=== PATIENT | female | born 1935 | race Caucasian/White ===

== ENCOUNTER 2017-05-29 01:00 | Day surgery (SDC) | payer MEDICARE ==
[~2017-05-29] VITALS: Ht 152.4 cm; Wt 67.6 kg
[~2017-05-29 01:00] MED LIST: ASC500 PO; ASCO-182 PO; ASCO100T15 PO; ASPE325 PO; ASPI-757 PO; ASPI325T22 PO; ATOR10TA24 PO; AZEL205.2 NS; CA C1TAB6 PO; CALC-797 PO; CALC-965 PO; CALC600T63 PO; CHOL10005 PO; CHOL200035 PO; CHOL200074 PO; CYAN500T38 PO; DILT120C79 PO; DILT180C86 PO; DOC100 PO; FLAX100038 PO; GLUC-234 PO; GLUC1TAB13 PO; HCTZ25 PO; HYDR-3250 GT; KRIL500C2 PO; LACT1CAP6 PO; LACT1TAB2 PO; LEVO75TA68 PO; LEVO88TA43 PO; LEVO88TA45 PO; LEVOXYL; LORA10CA3 PO; LOSA50TA67 PO; LOSA50TA72 PO; LUTE20CA11 PO; LUTE20TA PO; MAGN250T34 PO; MAGN500C10 PO; METH1TAB17 GT; MILK175C PO; MILK175T2 PO; MIRA50TA PO; MON10 PO; MONT10TA PO; OLO2ODPT OD; OMEP40CA48 PO; ONDA4TAB PO; POTA10TA PO; SIMV-42 PO; SPIR25TA78 PO; UBID200C21 PO; UBID400C6 PO; VITA-131 PO; [UNRECOGNIZED DRUG - OTHER] EXT
[2017-05-29 06:33] VITALS: BP 154/81
[2017-05-29] MEDS ORDERED: NORMOSOL R SOLN(*) 1000 ML BAG 1,000 ML IV PRN (07:00)
[2017-05-29] MEDS ORDERED: MIDAZOLAM 2 MG/2 ML VIAL IVP PRN (07:00)
[2017-05-29] MEDS ORDERED: LIDOCAINE/SOD BICARB 8.4% SYR ID ONE (07:00)
[2017-05-29] MEDS ORDERED: PROPOFOL EMUL(*) 10MG/ML 20 ML 40 ML ONE (07:01)
[2017-05-29 08:27] VITALS: BP 81/39
--- NOTE | 2017-05-29 08:32 | Short(Outpt) Discharge Summary ---
Discharge Summary Reason for Hosp/Final Diag: (1) Colon cancer screening Status: Chronic Hospital Course & Plan: Colonoscopy completed without problems. Departure Discharge to: Home, Self Care Discharge Instructions Home Meds Reported Medications Cholecalciferol (Vitamin D3) (VITAMIN D3) 1,000 Unit Tablet, 1000 UNIT PO BID, TAB 05/06/17 Calcium Carbonate (CALCIUM) 600 Mg Tablet, 600 MG PO BID 05/06/17 Aspirin (ECOTRIN) 325 Mg Tablet.dr, 325 MG PO QID 05/06/17 Montelukast Sodium (SINGULAIR) 10 Mg Tablet, 1 TAB PO QDAY, TAB 05/06/17 Losartan Potassium (LOSARTAN POTASSIUM) 50 Mg Tablet, 50 MG PO QDAY 05/06/17 Ubidecarenone (CO Q-10) 200 Mg Capsule, 200 MG PO QDAY, CAPSULE 05/06/17 Mirabegron (MYRBETRIQ) 50 Mg Tab.er.24h, 50 MG PO QDAY 04/30/17 Levothyroxine Sodium (LEVOTHYROXINE SODIUM) 88 Mcg Tablet, 88 MCG PO QDAY 08/24/15 Vitamin B Complex (VITAMIN B COMPLEX) 1 Each Tablet, 1 EACH PO QDAY 08/24/15 Ascorbic Acid (VITAMIN C) 500 Mg Tablet, 500 MG PO DAILY, TAB 08/24/15 Lactobacillus Combination No.4 (PROBIOTIC) 1 Each Capsule, 1 EACH PO QDAY, CAPSULE 08/01/15 Glucosamine Hcl/Chondr Galo A Na (OSTEO BI-FLEX CAPLET) 1 Each Tablet, 1 EACH PO BID 08/01/15 Flaxseed (FLAXSEED OIL) 1,000 Mg Capsule, 1000 MG PO QDAY, CAPSULE 08/01/15 Loratadine (CLARITIN) 10 Mg Capsule, 10 MG PO QDAY, CAPSULE 08/01/15 Azelastine Hcl (ASTEPRO) 205.5 Mcg/0.137 Ml [place].pump, 205.5 MCG NS PRN 08/01/15 Spironolactone (SPIRONOLACTONE) 25 Mg Tablet, 25 MG PO QDAY, TAB 07/22/15 Olopatadine (PATADAY) 0.05 Ml Soln, 0.05 ML OD PRN 07/22/15 Magnesium Oxide (MAGNESIUM) 500 Mg Capsule, 500 MG PO QDAY, CAPSULE 07/22/15 Atorvastatin Calcium (LIPITOR) 10 Mg Tablet, 10 MG PO QHS, TAB 07/22/15 Diltiazem Hcl (DILTIAZEM ER) 120 Mg Cap.er.deg, 120 MG PO QDAY 07/22/15 Lutein (Lutein) 20 Mg Capsule, 20 MG PO DAILY 08/01/11 Diet: Regular Activity: As Tolerated Special Instructions: Your colonoscopy was completed without any problems and your prep was excellent (Good Job!!). I didn't find any polyps, cancers, inflammation or any other abnormalities. You do not have to have any further colonoscopies for screening. If you need further help with your bowel movements or incontinence, I am happy to see you back in my office to address this if the Kegel exercises and fiber aren't providing adequate control. You can call my office at [phone] to schedule an appointment if desired. TANISHA BANG MD May 29, 2017 08:32
[2017-05-29 08:45] VITALS: BP 88/40
[2017-05-29 09:00] VITALS: BP 91/43
[2017-05-29 09:11] VITALS: BP 106/59
[2017-05-29 09:12] VITALS: BP 113/65
== END 2017-05-29 09:25 | disposition home or self-care (01) ==
LOC: OR 01:00
PROVIDERS: ATTEND Surgery
DX: Z12.11 Encounter for screening for malignant neoplasm of colon (principal)
CPT/HCPCS: 00812; G0121; J2704

== ENCOUNTER → 2017-07-04 | Outpatient (CLI) | payer MEDICARE ==
--- NOTE | 2017-07-04 15:52 | RADIOLOGY IMAGING REPORT ---
FACILITY: [facility] PATIENT NAME: KEYANA HUBBARD : [id number] MR: [id number] V: [id number] EXAM DATE: ORDERING PHYSICIAN: SENAIT KNOX TECHNOLOGIST: Lynn Schmidt PROCEDURE:BILATERAL DIGITAL SCREENING MAMMOGRAM WITH CAD ASSISTED INTERPRETATION & 3D TOMOSYNTHESIS COMPARISON:Prior mammograms 06/07/16, 12/07/15, 11/18/15, 11/05/14, 11/03/13, 10/17/12 INDICATIONS:SCREENING FINDINGS: Moderate amount of mildly heterogeneous fibroglandular tissue is seen throughout the breasts. The parenchymal pattern has remained stable allowing for difference in mammographic technique & patient positioning. There is no evidence of malignant appearing mass, malignant appearing calcifications or other secondary sign of malignancy in either breast. DIAGNOSTIC CATEGORY 1--NEGATIVE. RECOMMENDATIONS: ROUTINE MAMMOGRAM AND CLINICAL EVALUATION. IMPRESSION: BIRADS 1: Negative No significant abnormality is seen Dictated by: Jeannette Delaney M.D. on 07/04/2017 at 10:03 Transcribed by: ANTONIO on 07/04/2017 at 10:10 Approved by: Jeannette Delaney M.D. on 07/04/2017 at 15:51 [facility]
== END ==
LOC: MAMO 00:38
PROVIDERS: ATTEND Nurse Practitioner Family
DX: Z12.31 Encounter for screening mammogram for malignant neoplasm of breast (principal)
CPT/HCPCS: 77063; 77067

== ENCOUNTER 2017-07-09 07:20 | Outpatient (RCR) | payer MEDICARE ==
[2017-07-09] MEDS ORDERED: NS 0.9% 150 ML BAG 150 ML ONE (14:51)
[2017-07-09] MEDS ORDERED: IOPAMIDOL 76% 150 ML INFUS BTL 150 ML ONE (14:51)
--- NOTE | 2017-07-09 17:00 | RADIOLOGY IMAGING REPORT ---
FACILITY: [facility] PATIENT NAME: Janette Lees : 1935 MR: [id number] V: [id number] EXAM DATE: ORDERING PHYSICIAN: MAIDA SUERO TECHNOLOGIST: Location: [facility] Patient: Janette Lees : 1935 Visit/Account:[id number] Date of Sevice: 07/09/2017 ABDOMEN/PELVIS W/WO CONTRAST Provided history: Frequency, gross hematuria, dysuria, UTIs. Additional pertinent history: none TECHNIQUE: Spiral scan was obtained from the lower chest through the symphysis with intravenous cont rast Contrast dose: 125 mL Isovue 370 intravenously. Source images were reformatted in the coronal and sagittal planes. Additional series performed today: CT urogram protocol was performed. The patient received prelimina ry hydration. A non-intravenous contrast enhanced spiral scan was obtained of the kidneys, ureters an d bladder in the supine position. This was followed by split bolus of IV contrast with initial 75 mL followed by 50 mL at 5 minutes. Postcontrast scanning was performed at 8 minutes post injection in th e supine position. One of the following dose optimization techniques was utilized in the performance of this exam: Autom ated exposure control; adjustment of the mA and/or kV according to the patient's size; or use of an i terative reconstruction technique. Specific details can be referenced in the facility's radiology CT exam operational policy. COMPARISON STUDIES: Previous CT of 07/22/15 is off-line and not available. The report is available. FINDINGS: Lower chest: Small benign fat-containing Bochdalek hernia posterior right base. Liver/biliary: Negative Pancreas: Negative Spleen: Negative Adrenal glands: Negative Kidneys / ureters / bladder / genitourinary / retroperitoneum: There is no renal stone disease or hyd ronephrosis. A single irregular heavily calcified stone is noted dependently in the bladder lumen me asuring 12 x 13 mm. There are scattered benign cortical cysts in both kidneys. No suspect solid appearing lesions. The collecting structures have a normal appearance. Ureters are normal. Bladder wall smooth. Bowel / peritoneum / mesenteries: Negative Vessels: negative Lymph nodes: There are borderline prominent retroperitoneal lymph nodes. One of the largest is loca jordan in the preaortic space just below the left renal vein measuring 6 x 13 mm. Others are subcentime ter in size. No upper abdominal or pelvic adenopathy. Body wall: negative Bones: negative IMPRESSION: 1. Single irregular densely calcified stone in the bladder. 2. Benign-appearing cysts both kidneys. 3. Borderline prominent retroperitoneal lymph node. Previous study not available at this time. I w ill arrange for the prior study to be restored to the PACS system. An addendum will follow. Report Dictated By: Ray Wheatley MD at 07/09/2017 4:40 PM Report E-Signed By: Ray Wheatley MD at 07/09/2017 4:56 PM WSN:[id number]
== END 2017-07-09 18:00 | disposition home or self-care (01) ==
LOC: CT 07:20
PROVIDERS: ATTEND Urology
DX: N39.0 Urinary tract infection, site not specified (principal); R35.0 Frequency of micturition; R31.0 Gross hematuria; R30.0 Dysuria; N20.0 Calculus of kidney; N28.1 Cyst of kidney, acquired
CPT/HCPCS: 36415; 74178; 81001; 82565; 87088; Q9967

== ENCOUNTER 2017-07-18 01:21 | Day surgery (SDC) | payer MEDICARE ==
--- NOTE | 2017-07-16 14:47 | EKG ---
FACILITY: PATIENT NAME: KEYANA HUBBARD : [id number] MR: [id number] V: [id number] EXAM DATE: ORDERING PHYSICIAN: MARIA TERESA LIRA TECHNOLOGIST: JEFFRY Fajardo Reason : PREOP-BLADDER Blood Pressure : / mmHG Vent. Rate : 068 BPM Atrial Rate : 068 BPM P-R Int : 122 ms QRS Dur : 082 ms QT Int : 382 ms P-R-T Axes : 040 015 039 degrees QTc Int : 406 ms Normal sinus rhythm Septal infarct , age undetermined No ST-T abnormalities No previous ECGs available Confirmed by MANAV SHI ([id number]) on 07/16/2017 10:15:22 PM Referred By: PIO Confirmed By:MANAV SHI
[2017-07-16 15:07] LABS: INR 0.96
--- NOTE | 2017-07-17 16:33 | HISTORY AND PHYSICAL ---
DATE OF ADMISSION: July 18, 2017 CHIEF COMPLAINT Bladder stone. HISTORY OF PRESENT ILLNESS The patient is an 82-year-old white female with a history of bladder stones in 2011 who recently presented to the Urology Clinic with urinary urgency and frequency. He was found to have microscopic hematuria. A urine culture was performed which showed no growth. A CT urogram was performed which showed an approximately 1.5 cm, irregular bladder stone in the base of the bladder. She had no kidney stones, masses, or hydronephrosis. Of note, she had a CT scan in June 2015 which also showed a bladder stone measuring approximately 1.3 cm in size at that time. The patient now is being brought to the operating room for planned anesthetic cystoscopy with laser fragmentation of stone. PAST MEDICAL HISTORY: 1. Hypertension. 2. Hypercholesterolemia. 3. Kidney stones. 4. Osteoporosis. 5. Hypothyroidism. 6. Heart murmur. 7. Mixed urinary incontinence with pelvic prolapse. 8. History of UTIs. 9. COPD. 10. Asthma. PAST SURGICAL HISTORY 1. Cholecystectomy. 2. Bladder neck suspension. 3. Hysterectomy. 4. Tonsillectomy. 5. Colonoscopy. 6. Breast biopsy times two. 7. Cystoscopy with laser fragmentation of bladder stone in 2011. ALLERGIES CODEINE. CURRENT MEDICINES 1. Diltiazem. 2. Lipitor. 3. Losartan. 4. Synthroid. 5. Omeprazole. 6. Spironolactone. 7. Aspirin. 8. Claritin. 9. Multivitamins. 10. Singulair. 11. Astepro. 12. Probiotics. 13. Myrbetriq. FAMILY HISTORY Noncontributory. REVIEW OF SYSTEMS The patient denies productive cough, fever, chills, nausea, vomiting, flank pain , chest pains, bleeding disorder, chronic headaches, or liver disease. PHYSICAL EXAMINATION GENERAL: The patient is a well-developed, elderly, white female in no acute distress. HEENT: Normocephalic, atraumatic. CHEST: Clear to auscultation bilaterally. CARDIOVASCULAR: Regular rate and rhythm. ABDOMEN: Soft, nontender. No masses are palpated. GENITOURINARY: Exam is deferred to the OR. EXTREMITIES: Without clubbing, cyanosis, or edema. NEUROLOGIC: Nonfocal. IMPRESSION An 82-year-old white female with recurrent 1.5 cm, irregular surfaced bladder stone. PLAN We will perform anesthetic cystoscopy and laser fragmentation of stone with removal of fragments. VINNIE
[2017-07-18] VITALS (8 sets, daily range): BP systolic 119–148; BP diastolic 57–73
[~2017-07-18] VITALS: Ht 149.9 cm; Wt 69.4 kg
[2017-07-18 06:03] LABS: PLATELET COUNT, AUTOMATED 170 K/uL (150-450)
[2017-07-18] MEDS ORDERED: NORMOSOL R SOLN(*) 1000 ML BAG 1,000 ML IV PRN (06:45)
[2017-07-18] MEDS ORDERED: MIDAZOLAM 2 MG/2 ML VIAL IVP PRN (06:45)
[2017-07-18] MEDS ORDERED: ceFAZolin(*) 1 GM VIAL 1 GM in NS(*) 0.9% 100 ML ADDVANT BAG 100 ML IVPB ONE (06:45)
[2017-07-18] MEDS ORDERED: FAMOTIDINE 20 MG TAB PO ONE (06:45)
[2017-07-18] MEDS ORDERED: LIDOCAINE/SOD BICARB 8.4% SYR ID ONE (06:45)
[2017-07-18] MEDS ORDERED: BELLADONNA ALK/OPIUM 60MG SUPP PR ONE (08:29)
[2017-07-18] MEDS: NS 0.9% 3000 ML IRRIGATION BAG IR ONE ×2 (08:37→08:38)
[2017-07-18] MEDS ORDERED: OXYBUTYNIN CHL XL 5 MG TABCR PO ONE (09:04)
[2017-07-18] MEDS ORDERED: HYDR-4309 PO (09:09)
[2017-07-18] MEDS ORDERED: PHEN200T32 PO (09:09)
[2017-07-18] MEDS ORDERED: SULF-198 PO (09:10)
[2017-07-18] MEDS ORDERED: DOCU-416 PO (09:10)
[2017-07-18] MEDS ORDERED: APAP/HYDROCODONE 325/5 TAB ONE (09:45)
--- NOTE | 2017-07-18 14:52 | OPERATIVE REPORT 1 ---
EVENT DATE: July 18, 2017 SURGEON: José Barraza MD ANESTHESIOLOGIST: Bennett Brown MD ANESTHESIA: General anesthetic. PREOPERATIVE DIAGNOSIS A 1.5 cm, irregular surfaced bladder stone. POSTOPERATIVE DIAGNOSIS A 1.5 cm, irregular surfaced bladder stone. PROCEDURES PERFORMED 1. Anesthetic cystoscopy. 2. Holmium laser fragmentation of 1.5 cm bladder stone with irrigation of dust and fragments in bladder. ESTIMATED BLOOD LOSS Minimal. INTRAVENOUS FLUIDS Crystalloids. PATHOLOGY Stone fragments sent for permanent chemical analysis. DRAINS A 22-[place] three-way Matthews catheter with irrigation port plugged. COMPLICATIONS None. CONDITION The patient was taken to the recovery room awake and in stable condition. STATEMENT OF MEDICAL NECESSITY The patient is an 82-year-old white female who presents to the Urology Clinic with irritating voiding symptoms and hematuria. CT scan revealed a 1.5 cm, irregularly surfaced bladder stone. She had no kidney stones or other anomalies except for some mild pelvic prolapse. Of note, she had had a prior stone approximately five years ago which was treated endoscopically. She is now being brought to the operating room for planned anesthetic cystoscopy with laser fragmentation of bladder stone. DESCRIPTION OF OPERATION PERFORMED The patient was brought to the operating room. After general anesthetic was obtained, she was placed in the dorsal lithotomy position and prepped and draped in the usual sterile manner. Anesthetic cystoscopy was performed with the 21-[place] rigid Brock sheath and 30- and 70-degree lenses. Upon entering her bladder, immediately noted was a dark, spheroid-appearing, irregularly surfaced bladder stone which appeared more like a sea urchin in appearance and was measuring approximately 1.5 cm. There were some bullous changes at the base of the bladder, what appeared to be a chronic irritation from the stone. There were no other abnormalities of the bladder noted. She had a midline cystocele. At this point, the continuous flow sheath was placed in the bladder using the 12-degree lens. The 550 laser fiber was introduced into the working channel of the resectoscope sheath. Continuous flow with normal saline was established. The HyPHo 35 holmium laser was used to perform laser fragmentation of the stone. Stone settings were used at long fragmentation for a hard stone using the 550 size fiber. Under direct vision with the aid of the camera, laser dusting of the stone was performed in sweeping motion side-to- side. The stone was fairly hard, but dusting at these settings appeared to be adequate in treatment. After approximately 15 minutes of stone dusting, the stone was reduced to mainly dust with a few remaining smaller fragments which had chipped off the edges during dusting procedure. The laser settings were then turned to short fragmentation, and some of these larger fragments ranging from 3 to 8 mm were engaged and broke down into smaller parts. After fragmentation was complete, the [employer] bladder evacuator was used to remove all the dust and small fragments. Final cystoscopic exam revealed only two to three smaller, 1 to 3 mm fragments which were individually grasped with the grasping forceps. There appeared to be no bladder injury or bleeding at the conclusion of the case. The scope was removed. A 22-[place] three-way Matthews catheter was placed and the irrigation port plugged. She was placed to gravity drainage with clear return of urine. A B and O suppository was given per rectum at the conclusion of the case. The stone fragments were collected and to be sent for permanent analysis. PLAN The plan will be to allow the patient to be discharged home today with her Matthews catheter to drainage. We will see her in the Urology Clinic tomorrow morning to remove her catheter. She is also being sent home on [place], Pyridium , Bactrim, and Colace. VINNIE
== END 2017-07-18 09:38 | disposition home or self-care (01) ==
LOC: OR 01:21
PROVIDERS: ATTEND Urology
DX: N21.0 Calculus in bladder (principal); I10 Essential (primary) hypertension; E78.00 Pure hypercholesterolemia, unspecified; E03.9 Hypothyroidism, unspecified; J44.9 Chronic obstructive pulmonary disease, unspecified; Z79.899 Other long term (current) drug therapy; R01.1 Cardiac murmur, unspecified
CPT/HCPCS: 36415; 52317; 81001; 82365; 85025; 85610; 85730; 87088; 88300; 93005; A9270; J0690; J7050; 82040; 82247; 82310; 82374; 82435; 82565; 82947; 84075; 84132; 84155; 84295; 84450; 84460; 84520

== ENCOUNTER → 2017-12-16 | Outpatient (CLI) | payer MEDICARE ==
[~2017-12-16] MED LIST changes: +DOCU-416 PO; +HYDR-4309 PO; +PHEN200T32 PO; -SPIR25TA78 PO; +SPIR25TA80 PO; +SULF-198 PO
== END ==
LOC: RESP 00:42
PROVIDERS: ATTEND Nurse Practitioner Family
DX: R06.00 Dyspnea, unspecified (principal); Z77.22 Contact with and (suspected) exposure to environmental tobacco smoke (acute) (chronic)
CPT/HCPCS: 94060; 94726; 94729